=== PATIENT | male | born 1995 | race Two or more races ===

== ENCOUNTER → 2024-06-29 | Emergency (ER) | payer OTHER ==
[~2024-06-29] VITALS: Ht 175.3 cm; Wt 86.2 kg
[~2024-06-29] MED LIST: 0.9 % SODIUM CHLORIDE 1,000 ML IV STA; LORazepam 2 MG/ML VIAL IV ONE; LORazepam 2 MG/ML VIAL ONE; SUBOXONE 8 MG-1 EACH
== END | disposition left against medical advice (07) ==
LOC: ER 13:33
DX: F15.13 Other stimulant abuse with withdrawal (principal)